=== PATIENT | female | born 2000 | race African-American/Black ===

== ENCOUNTER 2023-10-13 02:25 | Emergency (ER) | payer OTHER ==
[~2023-10-13] VITALS: Ht 157.5 cm; Wt 70.3 kg
[2023-10-13] MEDS ORDERED: ALBU8.5H8 INH (02:47)
[2023-10-13] MEDS ORDERED: ALBUTEROL FS 2.5 MG/0.5 ML VIAL.NEB ONE ×2 (03:56→04:17)
[2023-10-13 04:02] VITALS: O2SAT 100
[2023-10-13] MEDS: ALBUTEROL FS 2.5 MG/0.5 ML VIAL.NEB NEB ONE ×2 (04:02→04:15)
[2023-10-13 04:12] VITALS: O2SAT 100
[2023-10-13 04:15] VITALS: O2SAT 100
[2023-10-13 04:25] VITALS: O2SAT 100
[2023-10-13 04:51] VITALS: BP 113/75; TEMP 98.5; O2SAT 100
== END 2023-10-13 04:52 | disposition home or self-care (01) ==
LOC: ER 02:38
DX: J98.01 Acute bronchospasm (principal)